=== PATIENT | male | born 1990 | race Caucasian/White ===

== ENCOUNTER 2021-07-19 13:28 | Emergency (ER) | payer MEDICAID, OTHER ==
[~2021-07-19] VITALS: Ht 182.9 cm; Wt 56.0 kg
[~2021-07-19 13:28] MED LIST: HYDR-4383 PO; ONDA4TAB12 PO; ONDA8TAB9 PO
[2021-07-19 13:41] VITALS: BP 110/67
--- NOTE | 2021-07-19 14:23 | NUR ---
Patient reports pain behind right ear x 2 days; appears to be cyst approximately the size of a nickel. Patient states he lanced it yesterday and is concerned about a staph infection.
[2021-07-19] MEDS ORDERED: CEPH250T PO (14:39)
== END 2021-07-19 15:11 | disposition home or self-care (01) ==
LOC: ER 13:31
DX: H66.41 Suppurative otitis media, unspecified, right ear (principal); F12.90 Cannabis use, unspecified, uncomplicated; Z79.2 Long term (current) use of antibiotics; Z79.899 Other long term (current) drug therapy
CPT/HCPCS: 10060; 99283

== ENCOUNTER 2021-07-29 12:32 | Emergency (ER) | payer OTHER ==
[~2021-07-29] VITALS: Ht 182.9 cm; Wt 56.8 kg
[2021-07-29 12:52] VITALS: BP 118/72
[2021-07-29] MEDS ORDERED: LIDOCAINE 2% w/EPI 1:100:000 30mL injection MDV**cath lab 1 only SQ ONE (14:10)
== END 2021-07-29 15:09 | disposition home or self-care (01) ==
LOC: ER 12:32
DX: H66.41 Suppurative otitis media, unspecified, right ear (principal); F12.90 Cannabis use, unspecified, uncomplicated; Z79.899 Other long term (current) drug therapy
CPT/HCPCS: 10060; 99282